=== PATIENT | male | born 1960 | race African-American/Black ===

== ENCOUNTER 2019-01-03 14:34 | Inpatient (IN) | payer BC ==
[~2019-01-03] VITALS: Ht 180.3 cm; Wt 82.1 kg
[2019-01-03 14:41] VITALS: BP_SYST 133
[2019-01-03] MEDS ORDERED: NACL 0.9% 1,000 ML IV ONE ×2 (15:30)
[2019-01-03 15:45] LABS: BASOPHILS % (AUTO) 0.6 % (0.0-2.0); CALCIUM 9.2 mg/dL (8.4-11.0); CREATININE 1.01 mg/dL (0.55-1.30); EOSINOPHILS % (AUTO) 0.4 % (0.0-4.0); HEMATOCRIT 46.5 % (36-54); HEMOGLOBIN 15.5 g/dL (14.0-18.0); LYMPHOCYTES % (AUTO) 23.6 % (20.5-51.5); MEAN CORPUSCULAR HEMOGLOBIN 30 pg (27-31); MEAN CORPUSCULAR HGB CONC 33 % (32-36); MEAN CORPUSCULAR VOLUME 90 fL (79.0-98.0); MONOCYTES % (AUTO) 5.7 % (1.7-9.3); NEUTROPHILS # (AUTO) 4.8 K/uL (1.8-7.7); NEUTROPHILS % (AUTO) 69.7 % (40.0-70.0); PLATELET COUNT (AUTO) 212 K/uL (130-430); POTASSIUM 4.1 mmol/L (3.5-5.1); RED BLOOD CELL COUNT(AUTO) 5.18 MIL/uL (4.2-6.2); RED CELL DISTRIBUTION WIDTH 14.1 % (9.0-15.0); WHITE BLOOD COUNT (AUTO) 6.9 K/uL (4.8-10.8)
[2019-01-03 15:46] LABS: INR 0.9 (0.80-1.20); LYMPHOCYTES # (AUTO) 1.6 K/uL (1.0-5.5); MONOCYTES # (AUTO) 0.4 K/uL (0.0-1.0); PROTHROMBIN TIME 9.7 SECS (9.5-12.5)
[2019-01-03 15:50] LABS: ALBUMIN 3.6 g/dL (3.4-4.8); TOTAL BILIRUBIN 0.5 mg/dL (0.0-1.0)
[2019-01-03] MEDS ORDERED: IOHEXOL 350 mgI/mL, 150 ML INFUS..BTL IV ONE (15:53)
[2019-01-03 17:33] VITALS: BP_SYST 113
[2019-01-03 19:40] VITALS: BP_SYST 126
[2019-01-03] MEDS: ENOXAPARIN SODIUM 80 MG/0.8 ML SYRINGE SUBCUT SCH (21:02)
[2019-01-04 00:42] VITALS: BP_SYST 113
[2019-01-04] MEDS: ENOXAPARIN SODIUM 80 MG/0.8 ML SYRINGE SUBCUT SCH ×2 (08:07→20:45)
[2019-01-04 08:11] VITALS: BP_SYST 131
[2019-01-04 13:52] VITALS: BP_SYST 131
[2019-01-04 16:34] VITALS: BP_SYST 111
[2019-01-04 20:30] VITALS: BP_SYST 113
[2019-01-05 02:35] VITALS: BP_SYST 104
[2019-01-05 07:35] LABS: CALCIUM 9.2 mg/dL (8.4-11.0); CREATININE 0.92 mg/dL (0.55-1.30); POTASSIUM 4.1 mmol/L (3.5-5.1)
[2019-01-05 08:00] VITALS: BP_SYST 128
[2019-01-05 08:44] LABS: WHITE BLOOD COUNT (AUTO) 4.7 K/uL (4.8-10.8)
[2019-01-05 08:45] LABS: BASOPHILS % (AUTO) 0.5 % (0.0-2.0); HEMATOCRIT 44.8 % (36-54); HEMOGLOBIN 14.5 g/dL (14.0-18.0); LYMPHOCYTES % (AUTO) 42.8 % (20.5-51.5); MEAN CORPUSCULAR HEMOGLOBIN 29 pg (27-31); MEAN CORPUSCULAR HGB CONC 32 % (32-36); MEAN CORPUSCULAR VOLUME 91 fL (79.0-98.0); MONOCYTES # (AUTO) 0.4 K/uL (0.0-1.0); MONOCYTES % (AUTO) 7.9 % (1.7-9.3); NEUTROPHILS # (AUTO) 2.2 K/uL (1.8-7.7); NEUTROPHILS % (AUTO) 47.8 % (40.0-70.0); PLATELET COUNT (AUTO) 202 K/uL (130-430); RED BLOOD CELL COUNT(AUTO) 4.94 MIL/uL (4.2-6.2); RED CELL DISTRIBUTION WIDTH 13.6 % (9.0-15.0)
[2019-01-05] MEDS: ENOXAPARIN SODIUM 80 MG/0.8 ML SYRINGE SUBCUT SCH (09:06)
[2019-01-05 12:17] VITALS: BP_SYST 132
[2019-01-05] MEDS ORDERED: APIX5TAB4 PO (14:20)
[2019-01-05 14:36] VITALS: BP_SYST 115
== END 2019-01-05 16:15 | disposition home or self-care (01) | DRG 299 ==
LOC: SED 14:34 → STU 16:41
PROVIDERS: ADMIT Family Medicine; ATTEND Family Medicine
DX: I82.431 Acute embolism and thrombosis of right popliteal vein (principal); I26.99 Other pulmonary embolism without acute cor pulmonale; Z88.0 Allergy status to penicillin; Z85.46 Personal history of malignant neoplasm of prostate; Z79.82 Long term (current) use of aspirin
CPT/HCPCS: 36415; 71275; 78579; 78580-TC; 80048; 80053; 85025; 85379; 85610-TC; 93970; 96360; 96361; 99285; A9539; A9540; G0378; J1650; J7030; Q9967